=== PATIENT | male | born 1965 | race Caucasian/White ===

== ENCOUNTER 2022-03-30 06:01 | Day surgery (SDC) | payer OTHER, SELFPAY ==
[2022-03-30] VITALS (10 sets, daily range): BP systolic 98–179; BP diastolic 68–102; PULSE 57–96; RESP 15–18; TEMP 36.2–36.7; O2SAT 92–100; BMI 29.9
--- NOTE | 2022-03-30 06:25 | PCM.HP.STD ---
HPI - General HPI Narrative MASOUD LEAL, is a 56 M who presents via open access today for screening colonoscopy. He has not had any previous ones. He has no symptoms. He does not seek medical care very often. Paternal grandfather had colon cancer. [facility] Medical History (Updated 03/28/22 @ 11:05 by Nanci Carlson) Cancer History of stress test No known health problems Home Medications NK 03/28/22 [History Last Taken Unknown] Allergy/AdvReac Type Severity Reaction Status Date / Time Sulfa (Sulfonamide Allergy Severe PT UNSURE Verified 03/28/22 11:01 Antibiotics) OF REACTION Social History Smoking Status: Never smoker ROS Constitutional Constitutional: Reports systems reviewed and no addt'l complaints, except as documented Cardiovascular Cardiovascular: Denies chest pain Respiratory/Chest Respiratory/Chest: Denies shortness of breath at rest Gastrointestinal Gastrointestinal: Denies abdominal pain, change in bowel habits, hematochezia or melena Physical Exam Const alert, oriented x3 and no apparent distress General Appearance: cooperative and comfortable Eyes General Eye: normal appearance of both eyes Neck General: normal visual inspection Chest inspection of chest normal Resp Effort and Inspection: able to speak in complete sentences and symmetric chest movement Auscultation: clear to auscultation bilaterally Cardio regular rate and regular rhythm GI soft to palpation, non-tender and non-distended Extremity no calf tenderness Neuro oriented x3 Psych thought process normal Assessment & Plan Assessment/Plan (1) Encounter for screening for malignant neoplasm of colon: PLAN: The patient presents via open access for screening colonoscopy today. He is aware of the technique, benefit, risk, alternatives. He has had an opportunity to ask and have questions answered. We will proceed as noted. Masoud Ko M.D., F.A.C.S.
[2022-03-30] MEDS: Lactated Ringers 1,000 ML 15 ML IV (06:40)
[2022-03-30] MEDS: Midazolam 5 MG/ML Syringe (07:13)
--- NOTE | 2022-03-30 07:32 | OP.COLON_ITS ---
Patient Name: Masoud Louis Procedure Date: 03/30/2022 7:06 AM Date of : 1965 Age: 56 Procedure: Colonoscopy Indications: Screening for colorectal malignant neoplasm Providers: Masoud Ko MD Medicines: Midazolam 4.5 mg IV, Meperidine 100 mg IV Patient Profile: Last Colonoscopy: none. The patient's first colonoscopy is today. Complications: No immediate complications. Procedure: Pre-Anesthesia Assessment: - Prior to the procedure, a History and Physical was performed, and patient medications and allergies were reviewed. The patient's tolerance of previous anesthesia was also reviewed. The risks and benefits of the procedure and the sedation options and risks were discussed with the patient. All questions were answered, and informed consent was obtained. Prior Anticoagulants: The patient has taken no previous anticoagulant or antiplatelet agents. ASA Grade Assessment: II - A patient with mild systemic disease. After reviewing the risks and benefits, the patient was deemed in satisfactory condition to undergo the procedure. After I obtained informed consent, the scope was passed under direct vision. Throughout the procedure, the patient's blood pressure, pulse, and oxygen saturations were monitored continuously. The pediatric colonoscope was introduced through the anus and advanced to the cecum, identified by appendiceal orifice and ileocecal valve. The colonoscopy was performed without difficulty. The patient tolerated the procedure well. The quality of the bowel preparation was good. The ileocecal valve and the appendiceal orifice were photographed. Moderate Sedation: Moderate (conscious) sedation was personally administered by the endoscopist. The following parameters were monitored: oxygen saturation, heart rate, blood pressure, and response to care. Total physician intraservice time was 15 minutes. Scope In: 7:15:08 AM Scope Withdrawal Time 0 hours 7 minutes 46 seconds Scope Out: 7:27:33 AM Total Procedure Duration Time 0 hours 12 minutes 25 seconds Findings: The digital rectal exam findings include non-thrombosed external hemorrhoids, non-thrombosed internal hemorrhoids and internal hemorrhoids that prolapse with straining, but spontaneously regress to the resting position (Grade II). Pertinent negatives include normal prostate (size, shape, and consistency). Multiple diverticula were found in the sigmoid colon and descending colon. The exam was otherwise without abnormality. Impression: - Non-thrombosed external hemorrhoids, non-thrombosed internal hemorrhoids and internal hemorrhoids that prolapse with straining, but spontaneously regress to the resting position (Grade II) found on digital rectal exam. - Diverticulosis in the sigmoid colon and in the descending colon. - The examination was otherwise normal. - No specimens collected. Recommendation: - Discharge patient to home. - Resume previous diet. - Continue present medications. - Repeat colonoscopy in 10 years for screening purposes. Procedure Code(s): --- Professional --- 38565, Colonoscopy, flexible; diagnostic, including collection of specimen(s) by brushing or washing, when performed (separate procedure) 75965, 59, Moderate sedation services provided by the same physician or other qualified health housekeeper caregiver performing the diagnostic or therapeutic service that the sedation supports, requiring the presence of an independent trained observer to assist in the monitoring of the patient's level of consciousness and physiological status; initial 15 minutes of intraservice time, patient age 5 years or older CPT copyright 2017 [employer]. All rights reserved. The codes documented in this report are preliminary and upon mower sharpener review may be revised to meet current compliance requirements. Masoud Ko MD 03/30/2022 7:31:49 AM This report has been signed electronically. Number of Addenda: 0 Note Initiated On: 03/30/2022 7:06 AM
--- NOTE | 2022-03-30 07:32 | OP.CCLET_ITS ---
03/30/2022 William Tello Md Re : Colonoscopy procedure for Masoud Louis Dear Omer This procedure was performed on Wednesday, March 30, 2022. My impressions and recommendations are as follows: Impressions : - Non-thrombosed external hemorrhoids, non-thrombosed internal hemorrhoids and internal hemorrhoids that prolapse with straining, but spontaneously regress to the resting position (Grade II) found on digital rectal exam. - Diverticulosis in the sigmoid colon and in the descending colon. - The examination was otherwise normal. - No specimens collected. Recommendations : - Discharge patient to home. - Resume previous diet. - Continue present medications. - Repeat colonoscopy in 10 years for screening purposes. My findings are described in the full procedure note, which is enclosed. If I can be of further assistance, please feel free to contact me at Doctor phone number(s): Work: . Sincerely, Masoud Ko MD 03/30/2022 7:31:49 AM This report has been signed electronically.
== END 2022-03-30 08:16 | disposition home or self-care (01) ==
LOC: EN 06:05 → AC 06:06
PROVIDERS: PCP Family Medicine; Referring Provider Family Medicine; Visit Provider Surgery
PROC: 0DJD8ZZ Inspection of Lower Intestinal Tract, Via Natural or Artificial Opening Endoscopic (ICD-10-PCS; CPT 45378; principal; 2022-03-30 06:55)
DX: Z12.11 Encounter for screening for malignant neoplasm of colon (principal); K57.30 Diverticulosis of large intestine without perforation or abscess without bleeding; K64.1 Second degree hemorrhoids; K64.4 Residual hemorrhoidal skin tags; Z80.0 Family history of malignant neoplasm of digestive organs
CPT/HCPCS: 45378; 99152; 99153; J7120

== ENCOUNTER → 2022-06-30 | Outpatient (CLI) | payer OTHER, SELFPAY ==
[2022-06-30 08:26] LABS: AST(SGOT) 23 U/L (15-37); Alanine Aminotransfer ALT/SGPT 38 U/L (16-61); Albumin, Serum 3.9 g/dL (3.2-5.0); Alkaline Phosphatase 70 U/L (45-117); Bilirubin, Direct 0.15 mg/dL (0.00-0.30); Cholesterol 198 mg/dL (200); Globulin 3.3 g/dL (2.2-4.2); High Density Lipoprotein 62 mg/dL; Protein, Total 7.2 g/dL (6.4-8.2); Triglycerides 160 mg/dL; Very Low Density Lipoprotein 32 mg/dL (5-40)
== END | disposition home or self-care (01) ==
LOC: MTLAB 07:09 → LAB 07:12
PROVIDERS: PCP Family Medicine; Referring Provider Internal Medicine Cardiovascular Disease; Visit Provider Internal Medicine Cardiovascular Disease
DX: I10 Essential (primary) hypertension (principal); R07.9 Chest pain, unspecified; Z82.49 Family history of ischemic heart disease and other diseases of the circulatory system
CPT/HCPCS: 36415; 80061; 80076

== ENCOUNTER → 2022-07-04 | Outpatient (CLI) | payer OTHER, SELFPAY ==
--- NOTE | 2022-07-04 12:00 | ECHOCS_ITS ---
Reason For Study: HTN Procedure This was a 2D Doppler, Color Flow transthoracic echocardiogram. The study was technically difficult. Contrast injection was performed. Exam performed in department. Left Ventricle Upon the 2D echocardiographic and contrast enhanced images obtained there appears to be grossly normal left ventricular size, wall motion, and systolic function. The estimated ejection fraction is 55 %. No evidence for diastolic dysfunction. Right Ventricle Normal RV size. Normal systolic function. Atria Normal left atrium. Normal right atrium. No doppler evidence for ASD. Mitral Valve There is no mitral annular calcification. Normal mitral valve. Tricuspid Valve Normal tricuspid valve. Aortic Valve Trisinus/trileaflet aortic valve. Mild diffuse aortic valve thickening. Pulmonic Valve The pulmonic valve is not well visualized. Trivial pulmonic valve insufficiency. Great Vessels Normal sized aortic root. Pericardium/Pleural No pericardial effusion. Medication 20 gauge I.V. with prn adaptor inserted into right arm. Diluted definity 3ml given slow IV push to enhance endocardial definition. MMode/2D Measurements & Calculations LVIDd: 5.0 cm IVSd: 0.92 cm Ao root diam: 3.7 cm LVIDs: 2.9 cm LVPWd: 1.0 cm LA dimension: 3.4 cm RVDd: 4.4 cm FS: 41.3 % LAV(MOD-bp): 49.0 ml LA A4 area: 16.7 cm2 RA A4 area: 16.3 cm2 LAV(MOD-bp) Indexed: 22.7 ml/m2 LAV(MOD-sp2): 51.5 ml LAV(MOD-sp4): 44.6 ml Time Measurements MV dec time: 0.21 sec Doppler Measurements & Calculations MV E max iker: 82.0 cm/sec Lat Peak E' Iker: 13.2 cm/sec Med Peak E' Iker: 9.3 cm/sec MV A max iker: 74.9 cm/sec E/E' lat: 6.2 E/E' med: 8.8 MV E/A: 1.1 MV dec slope: 389.8 cm/sec2 Ao V2 max: 107.2 cm/sec LV V1 max: 113.0 cm/sec Ao max P.6 mmHg LV V1 max P.1 mmHg PA V2 max: 84.0 cm/sec PA V2 mean: 63.1 cm/sec ECHO/Echo Complete W/ Contrast Interpretation Summary The study was technically difficult. Contrast injection was performed. Upon the 2D echocardiographic and contrast enhanced images obtained there appea rs to be grossly normal left ventricular size, wall motion, and systolic function. The estimated ejection fraction is 55 %. Mild diffuse aortic valve thickening. Trivial pulmonic valve insufficiency. No evidence for diastolic dysfunction. Ordering Physician: Wero Juarez Referring Physician: Wero Juarez Performed By: Govind Sparks RCS
--- NOTE | 2022-07-04 18:12 | STRESSREP_ITS ---
Stress Test Report Date: 07-04-2022 Procedure: Exercise tolerance test Indications: Chest pain; hypertension; family history of premature CAD Consent: Per the patient Procedure: The patient exercised on a Chavez protocol for 13 minutes completing Stage IV and 1 minute of Stage V achieving a peak heart rate of 141 bpm (86% predicted maximal heart rate) with a peak blood pressure 174/78 mmHg and a peak MET capacity of approximately 16 MET's. The baseline ECG demonstrated normal sinus rhythm. The peak exercise ECG demonstrated somatic/motion artifact with no obvious ECG changes. There was a rare PVC during exercise and in recovery. The functional capacity was considered good. The patient had no complaint of chest discomfort during exercise or recovery. The examination was discontinued secondary to dyspnea. Impression: 1. Technically adequate (percent predicted maximal heart rate greater than 85%) exercise tolerance test 2. Peak exercise ECG with somatic/motion artifact with no obvious ECG changes 3. There was a rare PVC during exercise and recovery This note was generated with [employer] software. It may contain incorrect words, spelling, and punctuation that were not noted in checking the note before signing.
== END | disposition home or self-care (01) ==
LOC: CVS 10:39
PROVIDERS: PCP Family Medicine; Referring Provider Internal Medicine Cardiovascular Disease; Visit Provider Internal Medicine Cardiovascular Disease
DX: I10 Essential (primary) hypertension (principal); R07.9 Chest pain, unspecified; Z82.49 Family history of ischemic heart disease and other diseases of the circulatory system
CPT/HCPCS: 93017; 93306; Q9957; A4216; C8929

== ENCOUNTER → 2023-03-01 | Outpatient (CLI) | payer OTHER, SELFPAY ==
[2023-03-01 15:26] LABS: Bacteria 0 SEEN /hpf (None Seen); Mucous, Urine 0 SEEN /hpf (<or=2+); Red Blood Cells-Urine 0 SEEN /hpf (0-5); Squamous Epithelial Cells - UA 0 SEEN /hpf (0-5); White Blood Cells 0 SEEN /hpf (0-5)
[2023-03-01 17:58] LABS: Absolute Lymphocyte Count 2.54 X10^3/uL (0.83-4.51); Absolute Neutrophil Count 3.5 X10^3/uL (2.0-7.7); Basophil# 0.07 X10^3/uL; Eosinophil# 0.24 X10^3/uL; Eosinophils% 3.5 % (0-5); Hematocrit 48.1 % (40-54); Hemoglobin 16.5 g/dL (13.0-16.5); Lymphocyte # 2.54 X10^3/ul (0.83-4.51); Lymphocyte % 36.8 % (19-41); Mean Corp Hgb Conc 34.3 g/dL (32-36); Mean Corpuscular Hgb 31.5 pg (27.0-32.0); Monocyte# 0.55 X10^3/uL; NRBC Flagged by Analyzer 0 % (0-5); Neutrophil # 3.49 X10^3/uL (2.7-7.7); Neutrophil % 50.6 % (47-70); Platelet Count 294 K/mm3 (150-450); RBC Distribution Width SD 43.6 fl (35.1-43.9); Red Blood Count 5.23 M/mm3 (4.6-6.2); White Blood Count 6.9 K/mm3 (4.4-11.0)
[2023-03-01 18:01] LABS: Glucose, Dipstick Normal (Normal); Ketone-Dipstick Negative (Negative); Leukocyte Esterase-Dipstick Negative /ul (Negative); Nitrite-Dipstick Negative (Negative); Occult Blood-Urine Negative /ul (Negative); Protein-Dipstick Negative (Negative); Specific Gravity, Urine 1.015 (1.002-1.030); Urine Bilirubin Dipstick Negative (Negative); Urine Urobilinogen Normal (Normal)
[2023-03-01 18:12] LABS: Color, Urine Yellow (Yellow); Urine Clarity Clear (Clear)
[2023-03-01 18:32] LABS: ALB/GLOB Ratio 1.1 RATIO (0.9-2.4); AST(SGOT) 24 U/L (15-37); Alanine Aminotransfer ALT/SGPT 35 U/L (16-61); Albumin, Serum 4.1 g/dL (3.2-5.0); Alkaline Phosphatase 81 U/L (45-117); Anion Gap 5 (5-15); BUN 20 mg/dL (7-18); Calcium,Total 8.9 mg/dL (8.5-10.1); Chloride 105 mmol/L (98-107); Cholesterol 178 mg/dL (200); Creatinine, Serum 1.05 mg/dL (0.70-1.30); EST Glomerular Filtration Rate 77 mL/min (>60); Est Glom Filt Rate - Afr Amer 93 mL/min (>60); Globulin 3.9 g/dL (2.2-4.2); Glucose 108 mg/dL (74-106); High Density Lipoprotein 42 mg/dL; PSA,Total - Annual Screen 1.44 ng/mL (0.00-4.00); Sodium Level 136 mmol/L (136-145); Thyroid Stim Hormone (TSH) 2.42 uIU/mL (0.358-3.74); Triglycerides 195 mg/dL; Very Low Density Lipoprotein 39 mg/dL (5-40)
[2023-03-04 12:41] LABS: Hemoglobin A1c 5.4 % (3.8-5.6)
== END | disposition home or self-care (01) ==
LOC: MFPLAB 15:21
PROVIDERS: PCP Family Medicine; Visit Provider Family Medicine
DX: R73.09 Other abnormal glucose (principal); I10 Essential (primary) hypertension; Z12.5 Encounter for screening for malignant neoplasm of prostate
CPT/HCPCS: 36415; 80053; 80061; 81001; 83036; 84153; 84443; 85025; G0103

== ENCOUNTER → 2025-03-23 | Outpatient (CLI) | payer OTHER, SELFPAY ==
[2025-03-23 18:29] LABS: Iron 59 ug/dL (65-175); Iron Binding Capacity,Total 279 ug/dL (250-450); Iron Binding Capacity,Unsat 220 ug/dL (228-428)
[2025-03-23 18:31] LABS: Ferritin 378 ng/mL (37-417); Vitamin B12 852 pg/mL (180-914); Vitamin D,25 Hydroxy 31.5 ng/mL (30-100)
[2025-03-25 05:07] LABS: Transferrin 239 mg/dL (177-329)
== END | disposition home or self-care (01) ==
LOC: MFPLAB 14:48
PROVIDERS: PCP Family Medicine; Referring Provider Family Medicine; Visit Provider Family Medicine
DX: R71.8 Other abnormality of red blood cells (principal); R53.83 Other fatigue
CPT/HCPCS: 36415; 82306; 82607; 82728; 83540; 83550; 84439; 84443; 84466